=== PATIENT | male | born 1960 | race African-American/Black ===

== ENCOUNTER 2020-08-18 10:32 | Emergency (ER) | payer OTHER ==
[~2020-08-18] VITALS: Ht 175.3 cm; Wt 78.9 kg
== END 2020-08-18 16:06 | disposition home or self-care (01) ==
LOC: ER 10:32 → CPU-OBS 11:12 → ER 11:12
DX: R07.89 Other chest pain (principal); Z20.822 Contact with and (suspected) exposure to COVID-19
CPT/HCPCS: 93005; G0378; G0379

== ENCOUNTER 2021-10-12 02:11 | Emergency (ER) | payer OTHER ==
[~2021-10-12] VITALS: Ht 175.3 cm; Wt 72.6 kg
== END 2021-10-12 12:56 | disposition home or self-care (01) ==
LOC: ER 02:11
DX: R10.84 Generalized abdominal pain (principal)

== ENCOUNTER 2022-06-28 10:02 | Outpatient (CLI) | payer OTHER | END 2022-06-28 10:13 | disposition home or self-care (01) | LOC: SONOGRAMA 10:02 | PROVIDERS: ATTEND Specialist | DX: N63.13 Unspecified lump in the right breast, lower outer quadrant (principal) ==

== ENCOUNTER 2024-05-24 03:20 | Emergency (ER) | payer OTHER ==
[~2024-05-24] VITALS: Ht 175.3 cm; Wt 71.7 kg
[~2024-05-24 03:20] MED LIST: ACETAMINOPHEN500 M1 PO; MEDROLPACK PO; MUCINEX DM ER1 EAC1 PO; ZITHROMAX500 MG PO
[2024-05-24] MEDS ORDERED: FAMOTIDINE/PF 20 MG/2 ML VIAL IV PUSH STA (04:17)
[2024-05-24] MEDS ORDERED: ONDANSETRON HCL 2 MG/ML VIAL IV STA (04:17)
[2024-05-24] MEDS ORDERED: MAG HYDROX/ALUMINUM HYD/SIMETH 30 ML BLIST.PACK PO STA (04:23)
[2024-05-24] MEDS ORDERED: HYOSCYAMINE SULFATE 0.125 MG TAB.SUBL SL STA (05:29)
[2024-05-24 07:35] LABS: URINE APPEARANCE Clear; URINE BILIRRUBIN Negative (NEGATIVE); URINE BLOOD Negative; URINE COLOR Yellow; URINE GLUCOSE Negative (NEGATIVE); URINE KETONE Negative (NEGATIVE); URINE LEUKOCYTE Negative; URINE NITRATE Negative; URINE PROTEIN Negative (NEGATIVE); URINE UROBILINOGEN 0.2 E.U./dl
[2024-05-24 07:40] LABS: URINE WBC 5.3 uL (0.0-23.2)
[2024-05-24 07:41] LABS: URINE EPITHELIAL CELLS 0.7 uL (0.0-38.8); URINE RBC 1.6 uL (0.0-20.8)
[2024-05-24] MEDS ORDERED: CIPRO500 MG PO (08:06)
[2024-05-24] MEDS ORDERED: LEVSIN/SL0.125 MG SL (08:06)
[2024-05-24] MEDS ORDERED: PEPCID40 MG PO (08:06)
[2024-05-24] MEDS ORDERED: PYRIDIUM DS200 MG PO (08:06)
== END 2024-05-24 08:25 ==
LOC: ER 03:20
PROVIDERS: General Practice
DX: K30 Functional dyspepsia (principal); R30.0 Dysuria

== ENCOUNTER → 2025-05-06 | Emergency (ER) | payer OTHER ==
[~2025-05-06] VITALS: Ht 175.3 cm; Wt 72.6 kg
[~2025-05-06] MED LIST changes: +CIPRO500 MG PO; +LEVSIN/SL0.125 MG SL; +MECLIZINE HCL 25 MG TABLET PO ONE; +MECLIZINE HCL 25 MG TABLET PO STA; +PEPCID40 MG PO; +PYRIDIUM DS200 MG PO
[2025-05-06 18:22] LABS: BASO % 0.9 % (0.1-1.2); EOS # 0.11 (0.04-0.54); EOS % 2.4 % (0.7-7.0); LYMPH # 1.76 (1.18-3.74); LYMPH % 37.8 % (19.3-53.1); MEAN PLATELET VOLUME 9.80 fl (9.4-12.4); MONO # 0.30 (0.24-0.82); MONO % 6.5 % (4.7-12.5); NEUT # 2.43 (1.56-6.13); NEUT % 52.2 % (34.0-71.1); RED CELL DISTRIBUTION WIDTH 12.4 % (11.6-14.4)
[2025-05-06 18:34] LABS: URINE APPEARANCE Clear; URINE BILIRRUBIN Negative (NEGATIVE); URINE BLOOD Negative; URINE COLOR Yellow; URINE GLUCOSE Negative (NEGATIVE); URINE KETONE Negative (NEGATIVE); URINE LEUKOCYTE Negative; URINE NITRATE Negative; URINE PROTEIN Negative (NEGATIVE); URINE UROBILINOGEN 0.2 E.U./dl
[2025-05-06 18:38] LABS: URINE BACTERIA 7.9 uL (0.0-1933)
[2025-05-06 19:01] LABS: URINE CAST 0.00 uL (0.0-1.40); URINE EPITHELIAL CELLS 0.1 uL (0.0-38.8); URINE RBC 0.8 uL (0.0-20.8); URINE WBC 1.0 uL (0.0-23.2)
[2025-05-06 19:11] LABS: ALT/SGPT 29.0 U/L (12-78); AST/SGOT 21.0 U/L (15-37); BILIRUBIN TOTAL 0.47 mg/dL (0.3-1.2); BUN CREA RATIO 17.0 (7.0-25.0); CREATININE SERUM 0.83 mg/dL (0.70-1.30); GFR 92.98; GLOBULINA 3.0 G/DL (2.4-3.5); GLUCOSE FASTING 108.0 mg/dL (65-100); OSMOLALITY SERUM 284.0 MOSM/KG (275-295)
== END | disposition home or self-care (01) ==
LOC: ER 14:56
PROVIDERS: General Practice
DX: R42 Dizziness and giddiness (principal)